=== PATIENT | male | born 1955 | race Two or more races ===

== ENCOUNTER → 2024-07-19 | Outpatient (CLI) | payer MEDICARE, SELFPAY ==
[2024-07-19 11:16] LABS: Basophils % (Auto) 0 % (0-2.5); Eosinophils # (Auto) 0.2 Thou/mm3 (0.0-0.5); Eosinophils % (Auto) 3 % (0-10); Hematocrit 36.7 % (41.0-53.0); Hemoglobin 12.4 g/dL (13.5-16.0); Immature Granulocytes % (Auto) 0 % (0-0); Immature Granulocytes Auto 0.03 Thou/mm3 (0.00-0.00); Lymphocytes # (Auto) 2.4 Thou/mm3 (1.0-4.8); Lymphocytes % (Auto) 35 % (10-50); Mean Corpuscular HGB Conc 33.8 g/dl (31.0-37.0); Mean Corpuscular Hemoglobin 30.7 pg (25.0-35.0); Mean Corpuscular Volume 91 fL (80-100); Monocytes # (Auto) 0.6 Thou/mm3 (0.0-0.8); Monocytes % (Auto) 8 % (0-12); Neutrophils # (Auto) 3.7 Thou/mm3 (1.8-7.7); Neutrophils % (Auto) 54 % (37-80); Nucleated Red Blood Cell % 0 /100 WBC (0); Platelet Count 242 Thou/mm3 (140-440); Red Blood Count 4.04 Miln/mm3 (4.50-5.90); White Blood Count 6.9 Thou/mm3 (3.8-10.6)
[2024-07-19 11:43] LABS: Alanine Aminotransferase 29 U/L (10-49); Albumin, Serum 4.1 gm/dL (3.4-4.8); Alkaline Phosphatase 79 U/L (46-116); Anion Gap 7 (7-16); Aspartate Amino Transferase 27 U/L (0-34); BUN/Creatinine Ratio 24 Ratio (12-20); Bilirubin,Direct 0.2 mg/dL (0.0-0.3); Bilirubin,Total 0.5 mg/dL (0.3-1.2); Blood Urea Nitrogen 24 mg/dL (9-23); Calcium 9.1 mg/dL (8.3-10.6); Carbon Dioxide 27.3 mMol/L (20.0-31.0); Cardiac Risk Estimate 4.2 RATIO (4.0-6.7); Chloride 106 mMol/L (98-107); Cholesterol 159 mg/dL (132-200); Free T4 (Free Thyroxine) 1.19 ng/dL (0.89-1.76); Glucose 88 mg/dL (74-106); HDL Cholesterol 38 mg/dL (40-60); LDL Cholesterol,Calculated 102 mg/dL (0-130); Osmolality,Calculated 282 (275-295); Potassium 4.6 mMol/L (3.4-5.1); Sodium 140 mMol/L (136-145); Total Protein 6.4 gm/dL (5.7-8.2); Triglycerides 96 mg/dL (30-150); eGFR > 60 See Note
== END | disposition home or self-care (01) ==
LOC: COPL 09:47
PROVIDERS: PCP Internal Medicine; Referring Provider Internal Medicine Cardiovascular Disease; Visit Provider Internal Medicine Cardiovascular Disease
DX: I10 Essential (primary) hypertension (principal); E78.5 Hyperlipidemia, unspecified; E07.9 Disorder of thyroid, unspecified
CPT/HCPCS: 36415; 80048; 80061; 80076; 84439; 84443; 85025

== ENCOUNTER → 2024-11-08 | Outpatient (CLI) | payer MEDICARE, SELFPAY ==
--- NOTE | 2024-11-08 | XR_ITS ---
Examination: PA lateral chest 2 views TECHNIQUE: Upright PA lateral chest 2 views Date and time: November 08, 2024 1236 hours Comparison November 13, 2023 INDICATIONS: Coughing shortness breath beginning 2 days ago. FINDINGS: Normal heart size Lungs are clear. The osseous structures are intact IMPRESSION: No active disease
== END | disposition home or self-care (01) ==
LOC: CDIM 12:02
PROVIDERS: PCP Internal Medicine
DX: R05.9 Cough, unspecified (principal)
CPT/HCPCS: 71046

== ENCOUNTER → 2025-02-20 | Outpatient (CLI) | payer MEDICARE, SELFPAY ==
--- NOTE | 2025-02-20 16:25 | XR_ITS ---
Examination: Knee bilateral, 4 views Technique: Knee AP, lateral, bilateral 4 views Date and time of exam: February 20, 2025, 1643 hrs. Indications: Bilateral knee pain beginning one year ago. Findings: Severe narrowing medial joint space right knee Moderate to advanced osteoarthritis lateral patellofemoral joints Moderate narrowing medial joint space left knee Mild to moderate osteoarthritis patellofemoral and lateral joint spaces left knee. Impression: Bilateral osteoarthritis as above, most severe involving the medial joint space right knee
== END | disposition home or self-care (01) ==
LOC: CDIM 16:12
PROVIDERS: PCP Internal Medicine; Referring Provider Internal Medicine; Visit Provider Internal Medicine
DX: M17.0 Bilateral primary osteoarthritis of knee (principal)
CPT/HCPCS: 73560

== ENCOUNTER → 2025-02-21 | Outpatient (CLI) | payer MEDICARE, SELFPAY ==
[2025-02-21 08:52] LABS: Basophils # (Auto) 0.1 Thou/mm3 (0.0-0.2); Basophils % (Auto) 1 % (0-2.5); Eosinophils # (Auto) 0.4 Thou/mm3 (0.0-0.5); Eosinophils % (Auto) 7 % (0-10); Glucose Estimated Average 111 mg/dL (80-131); Hematocrit 38.3 % (41.0-53.0); Hemoglobin 12.8 g/dL (13.5-16.0); Hemoglobin A1C 5.5 % Hgb (4.8-6.0); Immature Granulocytes Auto 0.01 Thou/mm3 (0.00-0.00); Lymphocytes # (Auto) 2.5 Thou/mm3 (1.0-4.8); Lymphocytes % (Auto) 42 % (10-50); Mean Corpuscular HGB Conc 33.4 g/dl (31.0-37.0); Mean Corpuscular Hemoglobin 31.4 pg (25.0-35.0); Mean Corpuscular Volume 94 fL (80-100); Monocytes # (Auto) 0.6 Thou/mm3 (0.0-0.8); Monocytes % (Auto) 10 % (0-12); Neutrophils # (Auto) 2.4 Thou/mm3 (1.8-7.7); Neutrophils % (Auto) 40 % (37-80); Nucleated Red Blood Cell # 0.00 Thou/mm3 (0.00-0.00); Nucleated Red Blood Cell % 0 /100 WBC (0); Platelet Count 231 Thou/mm3 (140-440); RDW Standard Deviation 42.5 fL (35.1-43.9); Red Blood Count 4.08 Miln/mm3 (4.50-5.90); White Blood Count 5.9 Thou/mm3 (3.8-10.6)
[2025-02-21 08:58] LABS: Prostate Specific Antigen 1.00 ng/mL (0-4.00)
[2025-02-21 09:04] LABS: Alanine Aminotransferase 19 U/L (10-49); Albumin, Serum 4.0 gm/dL (3.4-4.8); Albumin/Globulin Ratio 2.1 (1.2-2.2); Alkaline Phosphatase 75 U/L (46-116); Anion Gap 10 (7-16); Aspartate Amino Transferase 25 U/L (0-34); BUN/Creatinine Ratio 20 Ratio (12-20); Bilirubin,Total 0.6 mg/dL (0.3-1.2); Blood Urea Nitrogen 20 mg/dL (9-23); Calcium 9.6 mg/dL (8.3-10.6); Calcium (Corrected) 9.6 mg/dL (8.5-10.1); Carbon Dioxide 29.0 mMol/L (20.0-31.0); Cardiac Risk Estimate 3.7 RATIO (4.0-6.7); Chloride 103 mMol/L (98-107); Cholesterol 158 mg/dL (132-200); Creatinine (Component) 1.0 mg/dL (0.6-1.3); Globulin 1.9 gm/dL (2.3-3.5); Glucose 84 mg/dL (74-106); HDL Cholesterol 43 mg/dL (40-60); LDL Cholesterol,Calculated 94 mg/dL (0-130); Osmolality,Calculated 284 (275-295); Potassium 4.6 mMol/L (3.4-5.1); Sodium 142 mMol/L (136-145); Thyroid Stimulating Hormone 1.45 uIU/mL (0.55-4.78); Total Protein 5.9 gm/dL (5.7-8.2); Triglycerides 107 mg/dL (30-150); eGFR > 60 See Note
== END | disposition home or self-care (01) ==
LOC: COPL 07:31
PROVIDERS: PCP Internal Medicine; Referring Provider Internal Medicine; Visit Provider Internal Medicine
DX: Z00.00 Encounter for general adult medical examination without abnormal findings (principal); E78.5 Hyperlipidemia, unspecified; Z12.5 Encounter for screening for malignant neoplasm of prostate; Z79.899 Other long term (current) drug therapy
CPT/HCPCS: 36415; 80053; 80061; 83036; 84153; 84443; 85025

== ENCOUNTER → 2025-03-31 | Outpatient (CLI) | payer MEDICARE, SELFPAY ==
[2025-03-31 11:15] LABS: Vitamin D 25 Hydroxy Total 67.6 ng/mL (7.3-40.2)
[2025-03-31 11:21] LABS: Iron 97 mcg/dL (65-175); Percent Iron Saturation 36 % (20-55); Total Iron Binding Capacity 265 mcg/dL (250-425); Unsaturated Iron Binding 168 (225-295)
== END | disposition home or self-care (01) ==
LOC: COPL 10:03
PROVIDERS: PCP Internal Medicine; Referring Provider Orthopaedic Surgery; Visit Provider Orthopaedic Surgery
DX: D50.1 Sideropenic dysphagia (principal); E55.9 Vitamin D deficiency, unspecified
CPT/HCPCS: 36415; 82306; 83540; 83550

== ENCOUNTER 2025-05-02 09:19 | Outpatient (AMB) | payer MEDICARE, SELFPAY ==
[2025-05-02 09:43] VITALS: BP 122/74; PULSE 91; RESP 18; TEMP 35.7; O2SAT 98; BMI 23.0
--- NOTE | 2025-05-02 09:43 | PD.ORTHCLVIS ---
Vital signs 05/02/25 09:43 Height 1.75 m Height Method Measured Weight 70.789 kg Weight Measurement Method Standing Scale BMI 23.0 BP 122/74 Blood Pressure Source Automatic Cuff Blood Pressure Location Left Upper Arm Position Sitting Respiration 18 Pulse 91 Pulse Source Monitor Temp 96.2 F L Temp Source Temporal Artery Scan Pulse Oximetry (%) 98 Oxygen Delivery Method Room Air Med/Allergies Allergies & Medications Allergies No Known Allergies Allergy (Verified 05/02/25 09:44) Medication Reconciliation celecoxib 200 mg capsule (Celebrex) 200 mg PO QDAY 05/02/25 [History Confirmed 05/02/25] mirtazapine 15 mg tablet 15 mg PO QDAY 05/02/25 [History Confirmed 05/02/25] triamcinolone acetonide 0.1 % topical cream 1 applic topical BID 05/02/25 [History Confirmed 05/02/25] Exam Exam Patient is in no acute distress and is cooperative with the examination today. Breathing is nonlabored. In no respiratory distress. Bilateral extremities were evaluated and demonstrates sensation intact to light touch. Palpable pedal pulses are present. No significant edema is present. Bilateral hips were examined. The patient has no pain with log roll of the hips. Internal rotation to 30 degrees and external rotation to 30 degrees is painless. Negative FADIR. The left knee was examined. The left knee is in varus alignment. Range of motion from 0-115 degrees. Knee is stable to varus and valgus as well as AP translation with <5mm. Patient has a negative McMurrays. There is no pain with patellofemoral compression and no crepitus noted. The knee is tender to palpation medially. The right knee was also examined. The right knee is in varus alignment. Range of motion from 0-120 degrees. Knee is stable to varus and valgus as well as AP translation with <5mm. Patient has a negative McMurrays. There is no pain with patellofemoral compression and no crepitus noted. The knee is tender to palpation medially. X-rays of the right knee demonstrates complete joint space narrowing medially with varus deformity. These are nonweightbearing films Assessment and Plan Problem List (1) Degenerative arthritis of knee, bilateral: Status: Acute Plan: ASSESSMENT AND PLAN 1. Bilateral knee pain: Reports bilateral knee pain, with the right knee being worse. Pain has been present for about a year and a half. Non-weightbearing x-rays show [id number] contact in the right knee. No history of knee or hip surgeries, injections, or physical therapy in the last year. Anti-inflammatory medications like Celebrex are still helping. Uses a cane and can only walk about half a mile before needing to stop. Treatment options discussed include cortisone injections and gel injections. Cortisone injections are recommended for severe arthritis, while gel injections are better for mild to moderate arthritis. A cortisone injection will be administered today. Bilateral knee x-rays will be ordered to assess the condition under weight-bearing circumstances. If the cortisone injection provides relief for 3 months or longer, it may be repeated every 3 months. If it only works for 2 to 4 weeks, other treatment options will be considered. Recommend knee cortisone injection as patient would like to proceed with conservative treatment at this time. The risks and benefits of the procedure were reviewed with the patient and patient gave verbal consent to continue with the procedure. Procedure: performed by Dr. Araiza Using sterile technique the Right knee was thoroughly prepped with alcohol, and approximately 1 cc of Depo-Medrol 80mg/mL and 4 cc of 0.2% ropivacaine was injected without resistance into the medial tibial femoral joint space. The patient tolerated the procedure. 2. Spinal stenosis: Has spinal stenosis and curvature issues at L3 and L4, following a fall in 2005. An MRI CD is available for review. The potential impact of knee replacement surgery on the spinal condition was discussed, noting that the surgery should not pose a problem and might even help alleviate some symptoms. 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 ([id number]) Surgical Proc/IM SQ injection Minor Surgical Procedure: Yes (KNEE INJECTION) Medication Given Medication Given Medication Given: Yes Documented Dose Given: 1 Route: Infiitration Medication Given Medication Given Medication Given: Yes Documented Dose Given: 4 Route: Infiitration Office Meds methylprednisolone acetate 80 mg/mL suspension for injection Performing Provider: Alonso Araiza MD Performing Location: [facility] Administered by: Alonso Araiza MD on 05/02/25 11:35 Dose Route Admin Location Dispensed Lot Number Expiration Date Package ND NDC Diving Fisher 80 mg intra-articular KNEE 1 mL [id number] 01/12/27 [address]-4 [id number] [employer] ropivacaine (PF) 2 mg/mL (0.2 %) injection solution Performing Provider: Alonso Araiza MD Performing Location: [facility] Administered by: Alonso Araiza MD on 05/02/25 11:35 Dose Route Admin Location Dispensed Lot Number Expiration Date Package NDC NDC Diving Fisher 20 mL Infiltration KNEE 20 mL [id number] 07/15/27 66867-464-94 [id number] [facility] Intake Visit Data Collection New Patient or Established: New Patient (never been to [facility]) Reason for Visit:: BILATERAL KNEE PAIN Seen by Clinical Staff ONLY (RN/MA): No Ware Dresser Required: No PCP or OBGYN visit in last 3 months: Yes Hx Now: No Do You Feel Safe at Home: Yes Authorities Contacted: N/A Questionairres Past Medical History Past Medical History Have you ever been diagnosed with any of the following: Subjective Visit Visit for: new patient and knee Immunization / Flu Flu Vaccine in the Last 12 Months: Yes Flu Vaccine Exclusion Criteria: Already Received History of Present Illness Chief complaint: BILATERAL KNEE PAIN Date of injury / onset of symptoms: 1.5 YEARS HISTORY OF PRESENT ILLNESS IAlonso, have obtained verbal consent from the patient, to be recorded during this encounter which may include, but not limited to, medical history, examination, treatment plans, and relevant health information.? Patient was informed that recording will be read and reviewed by myself before inclusion in the medical chart. The patient is a 69-year-old male who presents today with bilateral knee pain, stating that the right knee is worse. Pain has been present for about a year and a half now. He has had both standing and lying down x-rays completed here at [facility]. He has not had any knee or hip surgeries before, has not had injections in the last year or so, has not had any physical therapy in the last year or so, and anti-inflammatory medications are still helping. He uses a cane and can only walk about half a mile before the cane does not let him hop. He reports experiencing pain in his right knee, which he describes as being more intense than the discomfort in his left knee. The pain is particularly pronounced when he walks or changes direction. He recently traveled from [place] to visit his grandson in [place], during which he had to change gait 3 to 4 times, resulting in significant discomfort. He relies on a cane for mobility and finds it challenging to walk for more than 20 to 30 minutes. He has been managing his pain with Celebrex, which he finds beneficial. He has not received any injections for his condition. He consulted his hoisting engine operator, Dr. Epstein, 3 months ago regarding the possibility of a knee replacement and was given clearance for the procedure. 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 He has an MRI CD of this incident and was diagnosed with stenosis and curvature issues. He expresses concern about whether these conditions would pose a problem if he were to undergo a knee replacement. Personal History Occupation: RETIRED Red flag PMH: none BMI Counceling provided: No Pain Pain level (0-10): 4 Pain location: inside (medial), outside (lateral) and anterior Pain quality: aching and tingling Pain timing: night, increases with activity and stairs Associated signs & symptoms: numbness and stiffness Ambulatory data Ambulatory device: cane Treatments Number of previous injections: 0 Improvement with previous injections: No Number of Physical Therapy sessions: 0 Improvement with PT: No Improvement with NSAIDS: yes Review of Systems Review of Systems: All systems negative unless otherwise noted in HPI.
--- NOTE | 2025-05-02 09:54 | XR_ITS ---
EXAMINATION: Bilateral knees 2 views Right lateral knee left lateral knee 2 views Bilateral Axuni single view TECHNIQUE: Bilateral AP knees standing single view, bilateral PA knees standing single view flexion Standing right lateral knee left lateral knee 2 views Bilateral Axuni single view total 5 views Date and time: May 02 2025, 1024 hours INDICATIONS: Bilateral knee pain 18 months. FINDINGS: Moderate osteopenia. Severe narrowing [id number] medial joint space right knee Moderate to advanced osteoarthritis right patellofemoral joint Moderate narrowing medial joint space left knee Moderate osteoarthritis left patellofemoral joint IMPRESSION: Severe narrowing [id number] medial joint space right knee Moderate to advanced osteoarthritis right patellofemoral joint
== END 2025-05-02 10:13 | disposition home or self-care (01) ==
LOC: HODSRG 09:19
PROVIDERS: PCP Internal Medicine; Referring Provider Internal Medicine; Supervising Provider Orthopaedic Surgery Adult Reconstructive Orthopaedic Surgery; Visit Provider Orthopaedic Surgery Adult Reconstructive Orthopaedic Surgery
DX: M25.561 Pain in right knee (principal); M25.562 Pain in left knee; M17.0 Bilateral primary osteoarthritis of knee; M48.061 Spinal stenosis, lumbar region without neurogenic claudication
CPT/HCPCS: 20610; 73564; 99203; J1010; J2795; G0463